=== PATIENT | male | born 1970 | race Caucasian/White ===

== ENCOUNTER 2023-03-08 20:49 | Inpatient (IN) | payer BC, SELFPAY ==
[~2023-03-08 20:49] MED LIST: Iopamidol-370 76% 500 ML MDV (1 ML CHARGE) ONE
[2023-03-08 21:08] LABS: #Basophils 0.1 thou/uL (0.0-0.2); #Eosinphils 0.3 thou/uL (0.0-0.7); #Monocytes 0.9 thou/uL (0.11-0.59); #Neutrophils 6.9 thou/uL (1.40-6.50); %Basophils 0.6 % (0.0-1.0); %Eosinophils 3.1 % (0.0-10.0); %Lymphocytes 20.3 % (21.0-51.0); %Monocytes 8.3 % (0.0-10.0); %Neutrophils 66.2 % (42.0-75.0); Hemoglobin 13.2 g/dL (14.0-18.0); Mean Corpuscular HGB CONC 32.3 g/dL (32.0-36.0); Mean Corpuscular Hemoglobin 25.8 pg (27.0-31.0); Mean Platelet Volume 11.7 fL (7.4-10.4); Platelet Count 259 10x3/uL (130-400); RBC Distribution Width 19.2 % (11.5-14.5); Red Blood Cell (RBC) Count 5.11 mill/uL (4.70-6.10); White Blood Cell (WBC) Count 10.4 10x3/uL (4.8-10.8)
[2023-03-08 21:36] LABS: ALT (SGPT) 27 U/L (8-55); AST (SGOT) 38 U/L (5-34); Albumin 4.2 g/dL (3.5-5.0); Alkaline Phosphatase 50 U/L (40-110); Anion Gap 11 mmol/L (10-20); BUN (Urea Nitrogen) 20 mg/dL (8.4-25.7); Bilirubin, Total 0.3 mg/dL (0.2-1.2); CK (CPK) 447 U/L (30-200); Calc. Creatinine Clearance 0 mL/min (70-130); Calcium 9.2 mg/dL (7.8-10.44); Carbon Dioxide 23 mmol/L (22-29); Chloride 109 mmol/L (98-107); Estimated GFR 75; Globulin 3.2 g/dL (2.4-3.5); Glucose 109 mg/dL (70-105); Lipase 31 U/L (8-78); Potassium 3.9 mmol/L (3.5-5.1); Protein, Total 7.4 g/dL (6.0-8.3); Sodium 139 mmol/L (136-145)
[2023-03-08] MEDS ORDERED: Ondansetron ODT 4 MG TAB PO PRN (22:58)
[2023-03-08] MEDS ORDERED: Ondansetron PF 4 MG/2 ML Vial IVP PRN (22:58)
[2023-03-08] MEDS ORDERED: Dextrose 5% in Water 1,000 ML IV PRN (22:58)
[2023-03-08] MEDS ORDERED: Morphine 2 MG/ML VIAL SLOW IVP PRN (22:58)
[2023-03-08] MEDS ORDERED: hydrALAZINE 20 MG/ML VIAL SLOW IVP PRN ×2 (22:58→23:00)
[2023-03-08] MEDS ORDERED: Dextrose 50% Abboject 50 ML SYRINGE SLOW IVP PRN (22:58)
[2023-03-08] MEDS ORDERED: Morphine 4 MG/ML VIAL SLOW IVP PRN (22:58)
[2023-03-08] MEDS ORDERED: Ipratropium/Albuterol 3 ML NEB NEB PRN (22:58)
[2023-03-08] MEDS ORDERED: Glucagon 1 MG/ML KIT IM PRN (22:58)
[2023-03-08] MEDS ORDERED: TETANUS, DIPHTHERIA TOX,ADULT (TDVAX) 0.5 ML VIAL IM ONE (22:58)
[2023-03-08] MEDS ORDERED: traMADol HCl 50 MG TAB PO PRN (23:00)
[2023-03-08] MEDS ORDERED: Sodium Chloride 0.9% 1,000 ML IV SCH (23:00)
[2023-03-08] MEDS ORDERED: Cyclobenzaprine 10 MG TAB PO PRN (23:00)
[2023-03-08] MEDS ORDERED: Boostrix 0.5 ML (Tdap) VIAL (>/=7 yrs of age) ONE (23:49)
[2023-03-09 00:59] LABS: Troponin I 0.022 ng/mL (< 0.028)
[2023-03-09 02:52] VITALS: BMI 31.1
[2023-03-09 03:14] LABS: Hemoglobin 13.5 g/dL (14.0-18.0); White Blood Cell (WBC) Count 12.4 10x3/uL (4.8-10.8)
[2023-03-09 03:15] LABS: #Basophils 0.1 thou/uL (0.0-0.2); #Eosinphils 0.2 thou/uL (0.0-0.7); #Monocytes 1.1 thou/uL (0.11-0.59); #Neutrophils 9.5 thou/uL (1.40-6.50); %Basophils 0.5 % (0.0-1.0); %Eosinophils 1.7 % (0.0-10.0); %Lymphocytes 11.5 % (21.0-51.0); %Monocytes 8.9 % (0.0-10.0); %Neutrophils 76.7 % (42.0-75.0); Mean Corpuscular HGB CONC 31.9 g/dL (32.0-36.0); Mean Corpuscular Volume 81.3 fl (78.0-98.0); Mean Platelet Volume 11.1 fL (7.4-10.4); Platelet Count 250 10x3/uL (130-400); RBC Distribution Width 19.2 % (11.5-14.5)
[2023-03-09 04:05] LABS: Anion Gap 10 mmol/L (10-20); BUN (Urea Nitrogen) 18 mg/dL (8.4-25.7); CK (CPK) 1062 U/L (30-200); Calc. Creatinine Clearance 133 mL/min (70-130); Calcium 8.8 mg/dL (7.8-10.44); Carbon Dioxide 24 mmol/L (22-29); Chloride 109 mmol/L (98-107); Estimated GFR 96; Glucose 112 mg/dL (70-105); Potassium 4.1 mmol/L (3.5-5.1); Sodium 139 mmol/L (136-145)
[2023-03-09 04:09] LABS: Troponin I 0.016 ng/mL (< 0.028)
[2023-03-09] MEDS: Ketorolac Tromethamine 30 MG/ML VIAL IVP SCH ×4 (04:26→19:05)
[2023-03-09] MEDS: Acetaminophen 500 MG TAB PO SCH ×4 (04:26→19:05)
[2023-03-09] MEDS: traMADol HCl 50 MG TAB PO SCH ×4 (04:26→18:45)
[2023-03-09] MEDS ORDERED: Gabapentin 300 MG CAP PO SCH (09:00)
[2023-03-09] MEDS: Famotidine 20 MG TAB PO SCH ×2 (09:33→21:08)
[2023-03-09] MEDS: Polyethylene Glycol 3350 17 GM Packet PO SCH (09:33)
[2023-03-09] MEDS: Senokot S 8.6-50 MG TAB PO SCH ×2 (09:33→21:08)
[2023-03-09] MEDS: Gabapentin 100 MG CAP PO SCH ×2 (14:50→21:01)
[2023-03-09 19:11] LABS: #Basophils 0.1 thou/uL (0.0-0.2); #Eosinphils 0.6 thou/uL (0.0-0.7); #Monocytes 1.3 thou/uL (0.11-0.59); %Basophils 0.8 % (0.0-1.0); %Eosinophils 5.3 % (0.0-10.0); %Lymphocytes 14.1 % (21.0-51.0); %Neutrophils 67.4 % (42.0-75.0); Hemoglobin 13.2 g/dL (14.0-18.0); Mean Corpuscular Hemoglobin 26.5 pg (27.0-31.0); Mean Corpuscular Volume 82.6 fl (78.0-98.0); Mean Platelet Volume 11.1 fL (7.4-10.4); Platelet Count 226 10x3/uL (130-400); RBC Distribution Width 18.9 % (11.5-14.5); Red Blood Cell (RBC) Count 4.99 mill/uL (4.70-6.10); White Blood Cell (WBC) Count 10.4 10x3/uL (4.8-10.8)
[2023-03-09] MEDS ORDERED: Sodium Chloride 0.9% 1,000 ML IV SCH (19:30)
[2023-03-10] MEDS: Ketorolac Tromethamine 30 MG/ML VIAL IVP SCH ×2 (00:39→06:06)
[2023-03-10] MEDS: Acetaminophen 500 MG TAB PO SCH ×4 (01:05→11:24)
[2023-03-10] MEDS: traMADol HCl 50 MG TAB PO SCH ×4 (01:05→11:24)
[2023-03-10 02:38] LABS: Amphetamine Detected (NotDetected); Barbiturates Screen Not Detected (NotDetected); Benzodiazepine Screen Not Detected (NotDetected); Cocaine Metabolite Screen Not Detected (NotDetected); Methadone Not Detected (NotDetected); Methamphetamine Detected (NotDetected); Opiate Screen Detected (NotDetected); Oxycodone Screen Not Detected (NotDetected); Phencyclidine (PCP) Not Detected (NotDetected); THC/Cannabinoid Screen Not Detected (NotDetected); Tricyclic Screen Not Detected (NotDetected)
[2023-03-10 06:15] LABS: #Basophils 0.1 thou/uL (0.0-0.2); #Eosinphils 0.5 thou/uL (0.0-0.7); #Monocytes 0.9 thou/uL (0.11-0.59); #Neutrophils 6.8 thou/uL (1.40-6.50); %Basophils 0.6 % (0.0-1.0); %Eosinophils 4.8 % (0.0-10.0); %Lymphocytes 14.6 % (21.0-51.0); %Monocytes 9.7 % (0.0-10.0); %Neutrophils 69.8 % (42.0-75.0); Hemoglobin 12.8 g/dL (14.0-18.0); Mean Corpuscular HGB CONC 31.8 g/dL (32.0-36.0); Mean Corpuscular Hemoglobin 26.2 pg (27.0-31.0); Mean Corpuscular Volume 82.2 fl (78.0-98.0); Mean Platelet Volume 11.2 fL (7.4-10.4); Platelet Count 225 10x3/uL (130-400); RBC Distribution Width 18.9 % (11.5-14.5); Red Blood Cell (RBC) Count 4.89 mill/uL (4.70-6.10); White Blood Cell (WBC) Count 9.7 10x3/uL (4.8-10.8)
[2023-03-10 06:39] LABS: Anion Gap 9 mmol/L (10-20); BUN (Urea Nitrogen) 14 mg/dL (8.4-25.7); CK (CPK) 569 U/L (30-200); Calc. Creatinine Clearance 142 mL/min (70-130); Calcium 8.7 mg/dL (7.8-10.44); Carbon Dioxide 26 mmol/L (22-29); Chloride 106 mmol/L (98-107); Estimated GFR 102; Glucose 100 mg/dL (70-105); Potassium 4.1 mmol/L (3.5-5.1); Sodium 137 mmol/L (136-145)
[2023-03-10] MEDS: Senokot S 8.6-50 MG TAB PO SCH (08:13)
[2023-03-10] MEDS: Gabapentin 100 MG CAP PO SCH ×2 (08:14→15:08)
[2023-03-10] MEDS: Famotidine 20 MG TAB PO SCH (08:14)
[2023-03-10] MEDS: Polyethylene Glycol 3350 17 GM Packet PO SCH (08:14)
[2023-03-10] MEDS ORDERED: Ibuprofen 200 MG TAB PO PRN (11:19)
[2023-03-10 15:26] VITALS: BP 155/90
[2023-03-10 15:34] VITALS: TEMP 98.9
== END 2023-03-10 15:50 | disposition home or self-care (01) | DRG 89 ==
LOC: ERS 20:49 → SURG B 22:54 → OBSVTOIN 03-09 14:24
PROVIDERS: ADMIT Specialist; ATTEND Specialist
DX: S06.0XAA Concussion with loss of consciousness status unknown, initial encounter (principal); S22.039A Unspecified fracture of third thoracic vertebra, initial encounter for closed fracture; S22.20XA Unspecified fracture of sternum, initial encounter for closed fracture; S22.32XA Fracture of one rib, left side, initial encounter for closed fracture; S20.219A Contusion of unspecified front wall of thorax, initial encounter; G89.11 Acute pain due to trauma; M54.2 Cervicalgia; S00.01XA Abrasion of scalp, initial encounter; Z98.890 Other specified postprocedural states; W20.8XXA Other cause of strike by thrown, projected or falling object, initial encounter
CPT/HCPCS: 36415; 36416; 70450; 71045; 71260; 72125; 72141; 74177; 80048; 80053; 80306; 82550; 83690; 84484; 85025; 86850; 86900; 86901; 90471; 90715; 93005; 96374; 96375; 96376; G0378; G0390; J1885; J2272; J7050; Q9967

== ENCOUNTER 2023-03-28 10:11 | Outpatient (CLI) | payer BC | END 2023-03-28 10:12 | disposition home or self-care (01) | LOC: RAD 10:11 | PROVIDERS: ATTEND Surgery | DX: S22.49XA Multiple fractures of ribs, unspecified side, initial encounter for closed fracture (principal); M54.2 Cervicalgia; M47.812 Spondylosis without myelopathy or radiculopathy, cervical region | CPT/HCPCS: 71046; 72040 ==

== ENCOUNTER 2023-09-05 09:36 | Outpatient (CLI) | payer OTHER | END 2023-09-05 09:37 | disposition home or self-care (01) | LOC: BICRAD 09:36 | PROVIDERS: ATTEND Student in an Organized Health Care Education/Training Program | DX: R07.89 Other chest pain (principal); M54.50 Low back pain, unspecified; M47.816 Spondylosis without myelopathy or radiculopathy, lumbar region | CPT/HCPCS: 71120; 72100 ==